=== PATIENT | male | born 1945 ===

== ENCOUNTER 2017-08-06 06:17 | Day surgery (SDC) | payer MEDICARE ==
[2017-08-01 09:23] VITALS: BMI 28.0
[2017-08-06] MEDS ORDERED: Iodixanol 320 MG/ML 100 ML BOTTLE IV ONE (06:40)
[2017-08-06] MEDS ORDERED: Iohexol 350mgl/ml 50 ML ONE (06:40)
[2017-08-06] MEDS ORDERED: Lidocaine 2% Inj (20ml) ONE (06:40)
[2017-08-06] MEDS ORDERED: Nitroglycerin 50mg in D5W 0 MG/0 ML BOTTLE IV ONE (06:40)
[2017-08-06] MEDS ORDERED: Phenylephrine 10 mg/ml Inj ONE (06:40)
[2017-08-06] MEDS ORDERED: Iodixanol 320 MG/ML 200 ML BOTTLE IV ONE (06:40)
[2017-08-06] MEDS ORDERED: Midazolam 2 MG/2 ML VIAL ONE (06:54)
[2017-08-06 07:02] LABS: BLOOD UREA NITROGEN 22 mg/dL (7-21); CALCIUM 9.1 mg/dL (8.4-10.5); CARBON DIOXIDE 25 mmol/L (21-33); CHLORIDE 104 mmol/L (98-107); CHOLESTEROL 179 mg/dL (130-200); GFR AFRICAN-AMERICAN > 60; GLUCOSE,RANDOM 207 mg/dL (70-110); INR 1.03 (0.93-1.08); PARTIAL THROMBOPLASTIN TIME 26.3 Seconds (23.7-30.8); POTASSIUM 4.7 mmol/L (3.6-5.0); SODIUM 140 mmol/L (132-148)
[2017-08-06 07:03] LABS: BASO # 0.03 K/mm3 (0.0-2.0); BASO % 0.4 % (0.0-3.0); EOS # 0.5 (0.0-0.7); EOS % 5.8 % (1.5-5.0); GRAN # 4.31 (1.4-6.5); GRAN % 55.1 % (50.0-68.0); HEMATOCRIT 33.5 % (42.0-52.0); LYMPH # 2.6 (1.2-3.4); LYMPH % 32.6 % (22.0-35.0); MEAN CELL VOLUME 86.8 fl (80.0-105.0); MEAN CORPUSCULAR HEMOGLOBIN 29.3 pg (25.0-35.0); MEAN CORPUSCULAR HGB CONC 33.7 g/dl (31.0-37.0); MEAN PLATELET VOLUME 9.5 fl (7.0-11.0); MONO # 0.5 (0.1-0.6); MONO % 6.1 % (1.0-6.0); RED CELL DISTRIBUTION WIDTH 14.1 % (11.5-14.5); WHITE BLOOD COUNT 7.8 10^3/ul (4.5-11.0)
[2017-08-06] MEDS ORDERED: Sodium Chloride 0.45% 1,000 ML IV SCH (08:00)
[2017-08-06 08:45] VITALS: TEMP 97.5
[2017-08-06 10:24] VITALS: PULSE 70; RESP 16
[2017-08-06 10:26] VITALS: O2SAT 95
[2017-08-06 11:44] VITALS: BP 134/72
--- NOTE | 2017-08-11 03:30 | CARDCATH ---
PROCEDURE DATE: 08/06/2017 PROCEDURES: 1. Left ventricular angiography. 2. Coronary angiography. 3. Radiological interpretation and supervision of the left ventricular angiography and coronary angiography. CLINICAL INDICATIONS: 1. Exertional angina. 2. Diabetes. 3. Hypertension. 4. History of coronary artery disease and stent placement. 5. Abnormal stress test. PERFORMING PHYSICIAN: Dr. Luis Andrew. PROCEDURE: After informed consent, patient was prepped and draped in the usual sterile fashion. A 2% Lidocaine was given in the right groin for local anesthesia. Using micropuncture technique, a 6-[place] sheath was introduced into right common femoral artery. JL4 diagnostic catheter was engaged into left main coronary artery. Left coronary angiography has revealed patent left main coronary artery. Left anterior descending coronary artery has a proximal 40% nonobstructive stenosis. Mid and distal left anterior descending coronary arteries. Obtuse marginal branches and septal branches are patent. Left main coronary artery divides into second branch of left circumflex coronary artery. Left circumflex coronary artery and obtuse marginal branches are patent. Right coronary was engaged using JR4 6-[place] diagnostic catheter. Right coronary angiography has revealed patent proximal mid and distal right coronary artery. However, PLV1 branch has a 60% ostial stenosis. LV angiography was performed using JR4 diagnostic catheter. EDP is 14. LV angiography has revealed normal LV systolic function with ejection fraction of 55%. Catheter pullback has revealed there is no gradient across the aortic valve. CONCLUSION: After LV angiography, left and right coronary angiography, radiological supervision and interpretation, the procedure has revealed nonobstructive coronaries. Prior stent is patent. Normal LV systolic function. Recommend aggressive medical management. Luis Andrew MD
== END 2017-08-06 12:05 | disposition home or self-care (01) ==
LOC: CATH 06:17
PROVIDERS: ATTEND Internal Medicine Cardiovascular Disease
DX: I25.118 Atherosclerotic heart disease of native coronary artery with other forms of angina pectoris (principal); I10 Essential (primary) hypertension; E11.9 Type 2 diabetes mellitus without complications; Z79.4 Long term (current) use of insulin; Z95.5 Presence of coronary angioplasty implant and graft
CPT/HCPCS: 36415; 80048; 80061; 85025; 85610; 85730; 86850; 86900; 93458; 99152; C1760; C1769; C1894; J1644; J2250; J2370; J3010; J7030; J7040